=== PATIENT | female | born 1945 | race Caucasian/White ===

== ENCOUNTER 2021-12-21 01:32 | Outpatient (CLI) | payer MEDICARE, SELFPAY ==
[2021-12-21 09:48] LABS: Abs Immature Grans 0.55 10^3/uL (0.0-0.06); Absolute Basophil Count 0.08 10^3/uL (0.0-0.2); HCT 31.5 % (36.0-46.0); HGB 9.9 g/dL (11.2-15.7); MCH 26.6 pg (27.0-33.0); MCHC 31.4 % (32.0-36.0); MCV 84.7 fL (80-95); MPV 8.6 fL (8.0-11.0); Nucleated RBC 0 %; Platelet Count 337 10^3/uL (130-400); RBC 3.72 10^6/uL (3.93-5.22); RDW 14.6 % (11.7-14.6); RDW-SD 44.4 fL
[2021-12-21 09:58] LABS: ALT 25 U/L (14-59); AST 22 U/L (15-37); Albumin 3.7 g/dL (3.4-5.0); Alkaline Phosphatase 84 U/L (46-116); Anion Gap 6.2 mmol/L (3-11); BUN 13 mg/dL (7-18); Bilirubin, Total 0.2 mg/dL (0.2-1.0); CO2 28.8 mmol/L (21.0-32.0); CREATININE 0.7 mg/dL (0.55-1.02); Chloride 95 mmol/L (98-107); Glucose 119 mg/dL (74-106); Magnesium 1.8 mg/dL (1.8-2.4); Potassium 3.4 mmol/L (3.5-5.1); Sodium 130 mmol/L (136-145); Total Protein 7.9 g/dL (6.4-8.2)
[2021-12-21 10:11] LABS: Absolute Eosinophil Count 0.08 10^3/uL (0.0-0.7); Absolute Lymphocyte Count 1.36 10^3/uL (1.2-3.4); Absolute Monocyte Count 1.12 10^3/uL (0.1-0.8); Absolute Neutrophil Count 5.28 10^3/uL (1.2-6.7); Bands % 2
[2021-12-21 10:12] LABS: Diff Comment Manual Differential; Metamyelocytes % 1; Polychromasia Present
== END 2021-12-21 01:33 | disposition home or self-care (01) ==
LOC: LBO 01:32
PROVIDERS: PCP Physician Assistant Medical; Visit Provider Internal Medicine Medical Oncology
DX: C34.31 Malignant neoplasm of lower lobe, right bronchus or lung (principal)
CPT/HCPCS: 36415; 80053; 83735; 85025

== ENCOUNTER 2022-01-08 11:33 | Emergency (ER) | payer MEDICARE, MEDICAID, SELFPAY ==
[2022-01-08] VITALS (125 sets, daily range): BP systolic 146–216; BP diastolic 55–143; PULSE 66–92; RESP 9–24; TEMP 36; O2SAT 92–100
--- NOTE | 2022-01-08 11:45 | RT.EKG_ITS ---
APPROVED REPORT Exam: Resting ECG Reason for Exam: chest pain Patient Location: E HR:82 bpm ECG Measurements Heart Rate 82 AXIS TN 138 P 63 QRSd 89 QRS 40 QT 378 T 41 QTc 442 Conclusion Sinus rhythm...normal P axis, V-rate 60- 99
--- NOTE | 2022-01-08 11:45 | DI.CT_ITS ---
Exam(s) CT CHEST PE ABD PELVIS W EXAM: CT CHEST PE ABD PELVIS W CLINICAL HISTORY: back pain, chest pain. TECHNIQUE: Imaging Protocol: Axial CT angiography was performed with multi-slice acquisition and mu lti-planar and/or 3D reconstructions. CONTRAST MATERIAL: Intravenous: Omnipaque 350 Contrast volume:100 mL COMPARISON: No exams were available for comparison FINDINGS: CHEST: Tracheobronchial tree: Patent where visualized. There is a small right pleural effusion. There is an area of triangular consolidation in the right lower lobe. There is soft tissue extending from the hil um into the right lower lobe which causes obstruction of right lower lobe bronchi leading to the tria ngular consolidation. Within the area of consolidation there is a well-circumscribed round fluid atte nuation lesion measuring 2.9 x 2.3 cm. Pulmonary parenchyma: Please see the above discussion. Centrilobular emphysematous changes are presen t. Pulmonary Arteries: No evidence of filling defect to suggest pulmonary emboli. Mediastinum and Anna: No dominant adenopathy or fluid collection. The esophagus is unremarkable. Visualized thyroid gland: Unremarkable. Pleura: Please see the above discussion. No left pleural effusion or pneumothorax. Heart: The heart is not dilated. No coronary artery calcifications are seen. No pericardial effusion. Aorta: Thoracic aorta non-dilated. No evidence of dissection. Mild atherosclerosis. Bones: Within normal limits for the patient's age. No suspicious lytic or sclerotic lesions are prese nt. Soft tissues: Unremarkable. ABDOMEN: Liver: Normal density. No measurable mass. Portal, Superior Mesenteric, and Splenic Veins: Unremarkable. Gallbladder and Biliary Tract: No radiodense calculus or dilation. Pancreas: Normal density, no abnormal calcifications or inflammatory process. Spleen: Normal. Adrenals: No masses seen. Kidneys: Normal size, contour and axis. No radiodense stones or obstructive uropathy. Tiny hypodensit ies are seen in the kidneys bilaterally. They are too small for further characterization but likely r eflect small cysts. Abdominal Aorta: Abdominal portion non-dilated. Atherosclerosis. Bowel: No evidence of obstruction. There is a short spine at segment of rectosigmoid colon which does show mild thickening of the wall (series 14, image [id number]). It measures almost 4 cm in length. There is mild dilatation of the colon just proximally. No evidence of appendicitis. Diverticulosis in the col on but no evidence of acute diverticulitis. Peritoneal Cavity: No ascites, collection or mesenteric inflammatory response. No free air. Lymph Nodes: Within normal limits. Bones: Within normal limits for the patient's age. There are 2 round small sclerotic foci in the L1 vertebral body. There is a small sclerotic focus in the L5 vertebral body. Follow-up as clinically in dicated. Soft Tissues: Unremarkable. PELVIS: Bladder: Symmetric distention, no gross wall thickening. Reproductive Organs: Status post hysterectomy. Lymph Nodes: Within normal limits. Bones: Within normal limits. IMPRESSION: 1. No evidence pulmonary embolism, thoracic aortic dissection or aneurysm. 2. Triangular area of consolidation in the right lower lobe with what appears to be obstruction of th e of right lower lobe bronchus. An obstructing mass should be considered with postobstructive atelect asis or pneumonia and small pleural effusion. 3. A question of thickening of the wall of the rectosigmoid colon with mild dilatation of the proxima l colon. An obstructing lesion is suspected. Further evaluation with barium enema and/or colonoscopy is recommended. 4. No acute abdominal or pelvic process. 5. Results of this exam have been verbally communicated with provider. RADIATION DOSE DELIVERED: 1,114.39mGy.cm Total DLP DATA REPOSITORY: All CT scans at this facility are submitted to the National Radiology Data Registry (NRDR) Dose Index Registry (DIR) with the [employer] (ACR). RADIATION OPTIMIZATION: All CT scans at this facility use at least one of these dose optimization te chniques: automated exposure control; mA and/or kV adjustment per patient size (includes targeted exa ms where dose is matched to clinical indication); or iterative reconstruction.
[2022-01-08 12:18] LABS: Abs Immature Grans 0.09 10^3/uL (0.0-0.06); Absolute Basophil Count 0.05 10^3/uL (0.0-0.2); Absolute Eosinophil Count 0.01 10^3/uL (0.0-0.7); Absolute Lymphocyte Count 0.76 10^3/uL (1.2-3.4); Absolute Neutrophil Count 1.76 10^3/uL (1.2-6.7); Basophils % 1.4; Eosinophils % 0.3; HCT 28.6 % (36.0-46.0); HGB 9.2 g/dL (11.2-15.7); Immature Grans % 2.6; Lymphocytes % 21.9; MCH 27.3 pg (27.0-33.0); MCHC 32.2 % (32.0-36.0); MCV 84.9 fL (80-95); MPV 8.7 fL (8.0-11.0); Monocytes % 23.1; Neutrophils % 50.7; Nucleated RBC 0 %; Platelet Count 221 10^3/uL (130-400); RBC 3.37 10^6/uL (3.93-5.22); RDW 15.9 % (11.7-14.6); RDW-SD 48.7 fL; WBC 3.47 10^3/uL (4.4-10.8)
--- NOTE | 2022-01-08 12:29 | ED.GENADUL_ITS ---
Discharge Plan Disposition Patient Disposition: HOME Condition: Stable Discharge Details Clinical Impression: Back pain, Elevated troponin, Lung cancer Primary Care Provider: Pura Villanueva ED Provider: Chucky Currie Home Meds and New Rx's Prescriptions: New oxycodone-acetaminophen [Percocet] 5-325 mg tablet 1 tab PO TID PRNQty: 7 0RF Continued prednisone 20 mg Tablet 40 mg PO DAILY 0RF sertraline 100 mg Tablet 100 mg PO DAILY 0RF atenolol 25 mg Tablet 12.5 mg PO DAILY 0RF amlodipine 5 mg Tablet 5 mg PO DAILY 0RF aspirin 81 mg Tablet,Delayed Release (Dr/Ec) 81 mg PO DAILY 0RF tramadol 50 mg Tablet 50 mg PO TID PRN0RF lorazepam 0.5 mg Tablet 0.5 mg PO BID PRN0RF benzonatate 100 mg Capsule 100 mg PO TID PRN0RF hydrochlorothiazide 25 mg Tablet 25 mg PO DAILY 0RF fluticasone propion-salmeterol [Advair Diskus] 100-50 mcg/dose Blister With Device 1 inh inhalation DAILY 0RF polyethylene glycol 3350 [Miralax] 17 gram/dose Powder 17 g PO DAILY 0RF irbesartan [Avapro] 300 mg Tablet 300 mg PO DAILY 0RF cyclobenzaprine 5 mg Tablet 5 mg PO TID PRN0RF melatonin 1 mg Tablet 1 mg PO QHS PRN0RF Spiriva with HandiHaler 18 mcg Capsule, W/Inhalation Device 1 cap INHALATION DAILY 0RF acetaminophen 325 mg Capsule 650 mg PO TID PRN0RF albuterol sulfate 90 mcg/actuation Aerosol Powdr Breath Activated 2 inh INHALATION Q4H PRN0RF yehxosyzwhf-vcgqkugpr-rbsjeoaj 200-62.5-25 mcg Blister With Device 1 inh INHALATION DAILY 0RF Discharge Instructions Instructions: Back Pain (ED) Additional Instructions: Please follow-up with your primary care physician, you will likely need an outpatient stress test Please return earlier should you have new or worsening complaints Should you have fever, chills, shortness of breath, you must return to the emergency room for reassessment follow-up your oncologist regarding your pain follow-up regarding your ct findings with possible lesion in your colon Referrals: Pura Villanueva [Primary Care Provider] - 1 day Discharge Data Discharge Date/Time-TO BE ENTERED AT DEPARTURE: 01/08/22 18:28 Medical Decision Making <XAVIER Peralta - Last Filed: 01/12/22 08:21> Patient appears well, she is pain-free Her EKG does not show acute abnormality Her initial troponin was elevated at 72 CT results show right lower lobe lesion, I suspect her suspicion for cancer is is where she tells me she was diagnosed There is no clinical evidence of pneumonia, no leukocytosis, no persistent tachycardia, and her hemoglobin hematocrit are stable per patient My suspicion is low that this is cardiac related and elevation Her repeat EKG and troponin do not show acute abnormality, troponin 69, decreased from [address] Dan regarding admission of this patient for trending troponins and stress test, however they declined admission at this time To err on the side of caution I will order repeat troponin at 5:00 in the evening and repeat EKG at this time An echocardiogram I have also been ordered to evaluate for wall motion abnormalities Should patient have elevation in her troponin, or an abnormal EKG/echocardiogram, she will need to be admitted at that time Patient is calm and pleasant, she is pain-free She was given 4 baby aspirin care will be transferred to Chucky Currie PA-C pending repeat troponin at 5:00, repeat troponin, and evaluation of patient's echocardiogram for wall motion abnormality If these are normal I think she stable for discharge home We will write for pain medication should she need Medical Records Medical records reviewed: Yes I reviewed the patient's medical records. <XAVIER Martinez - Last Filed: 01/08/22 18:14> Patient appears well, she is pain-free Her EKG does not show acute abnormality Her initial troponin was elevated at 72 CT results show right lower lobe lesion, I suspect her suspicion for cancer is is where she tells me she was diagnosed There is no clinical evidence of pneumonia, no leukocytosis, no persistent tachycardia, and her hemoglobin hematocrit are stable per patient My suspicion is low that this is cardiac related and elevation Her repeat EKG and troponin do not show acute abnormality, troponin 69, decreased from [address] Dan regarding admission of this patient for trending troponins and stress test, however they declined admission at this time To err on the side of caution I will order repeat troponin at 5:00 in the evening and repeat EKG at this time An echocardiogram I have also been ordered to evaluate for wall motion abnormalities Should patient have elevation in her troponin, or an abnormal EKG/echocardiogram, she will need to be admitted at that time Patient is calm and pleasant, she is pain-free She was given 4 baby aspirin care will be transferred to Chucky Currie PA-C pending repeat troponin at 5:00, repeat troponin, and evaluation of patient's echocardiogram for wall motion abnormality If these are normal I think she stable for discharge home We will write for pain medication should she need CJB 1530 I personally reevaluate the patient, she is resting comfortably asking for a drink. She denies any chest pain or shortness of breath whatsoever. Please see initial HPI and examination by my colleague XAVIER Villela. At time of signout pending a delta troponin and EKG at 1700 and awaiting echocardiogram. If there are no dynamic changes and patient remains hemodynamically stable, plan is to discharge home. Patient able to tolerate p.o. intake without difficulty. Echocardiogram read by radiology, no emergent process identified that would change disposition EKG performed at 1702, please see read by Dr. Moon. Sinus rhythm, ventri cular of 71, no STEMI. Repeat troponin is 70, does not appear to be increasing. She denies any chest pain or shortness of breath. Patient is requesting to be discharged home. Her blood pressure has trended downward nicely since her initial presentation. Strict discharge and return precautions were provided. Otherwise she will contact her provider first thing Tuesday morning to discuss her ER visit, symptoms, need for outpatient reevaluation. This documentation was generated using [employer] dictation system, please disregard any oddities of phrase or misspellings. Imaging Data Radiologic Study: Attestation: I personally reviewed and interpreted this imaging study as follows: Imaging: Ultrasound Radiologist's impression: EXAM: Comprehensive 2D, Doppler, and color-flow Echocardiogram Patient Location: ER Room/Bed:? 7 Entertainment Reporter: Madiha Downing RDCS (AE) Indications: Back pain Other Information Study Quality: Adequate. Technically limited study due to body habitus, inability to position patient exam done supine bedside er. Conclusion Normal left ventricular wall thickness and chamber size.? Estimated ejection fraction is 60 to 65%.? Wall motion is normal Normal right ventricular size and systolic function Both atria are normal in size Sclerotic trileaflet aortic valve with trace regurgitation Mild mitral annular calcification.? Mild mitral regurgitation Normal tricuspid valve with trace regurgitation.? Estimated right ventricular systolic pressure is 35 mmHg Aortic root and ascending aorta are normal Wall motion Left Ventricle The left ventricle is normal size. The left ventricular systolic function is normal. The left ventricular ejection fraction is within the normal range. There is normal left ventricular wall thickness. There is normal LV segmental wall motion. There is no ventricular septal defect visualized. LVEF is 62%. Right Ventricle The right ventricle is normal size. The right ventricular systolic function is normal. The RVSP is 35.4 mmHg. Atria The left atrium size is normal. The right atrium size is normal. The interatrial septum is intact with no evidence for an atrial septal defect. Aortic Valve The Aortic valve is sclerotic. Aortic valve is trileaflet. There is no aortic valvular stenosis. Trace aortic regurgitation. Mitral Valve Mild mitral annular calcification. No evidence of mitral valve stenosis. Mild mitral regurgitation. Tricuspid Valve The tricuspid valve is normal in structure. There is no tricuspid valve stenosis. Trace tricuspid regurgitation. Pulmonic Valve Pulmonic valve is not well visualized. There is no pulmonic valvular stenosis. There is no pulmonic valvular regurgitation. Great Vessels The aortic root is normal in size. The ascending aorta is normal in size. Aortic arch is not well visualized. The IVC is plethoric. Pericardium There is no pericardial effusion. HPI <XAVIER Peralta - Last Filed: 01/12/22 08:21> General Date/Time Provider Initiated Documentation: 01/08/22 11:37 . HPI Narrative: This 76-year-old female with back pain from her catheter for extended her lumbar region for the past 6 days. She states that the pain is predominantly at night and keeps her up from sleeping. She denies any anterior chest pain or shortness of breath. She denies any blood in her stool. She denies any nausea or vomiting. She states that she has had 3 doses of chemotherapy and this is her first round of intervention. Past chemotherapy was this week. She denies prior history of similar symptoms in the past. She states she just had a PET scan recently at [facility]. She also states she had a head CT that did not show acute abnormality. She denies any history of coagulopathy. She denies any calf pain or swelling. She denies any known exacerbating or alleviating factors. Related Data Home Medications Medication Instructions Recorded Confirmed acetaminophen 325 mg capsule 650 mg PO TID PRN 01/08/22 01/08/22 albuterol sulfate 90 mcg/actuation 2 inh INHALATION Q4H PRN 01/08/22 01/08/22 breath activated powder inhaler amlodipine 5 mg tablet 5 mg PO DAILY 01/08/22 01/08/22 aspirin 81 mg tablet,delayed 81 mg PO DAILY 01/08/22 01/08/22 release atenolol 25 mg tablet 12.5 mg PO DAILY 01/08/22 01/08/22 benzonatate 100 mg capsule 100 mg PO TID PRN 01/08/22 01/08/22 cyclobenzaprine 5 mg tablet 5 mg PO TID PRN 01/08/22 01/08/22 fluticasone 100 mcg-salmeterol 50 1 inh INHALATION DAILY 01/08/22 01/08/22 mcg/dose blistr powdr for inhalation (Advair Diskus) fluticasone fur. 200 mcg-umeclid 1 inh INHALATION DAILY 01/08/22 01/08/22 62.5 mcg-vilant 25 mcg inhalat.powder hydrochlorothiazide 25 mg tablet 25 mg PO DAILY 01/08/22 01/08/22 irbesartan 300 mg tablet (Avapro) 300 mg PO DAILY 01/08/22 01/08/22 lorazepam 0.5 mg tablet 0.5 mg PO BID PRN 01/08/22 01/08/22 melatonin 1 mg tablet 1 mg PO QHS PRN 01/08/22 01/08/22 oxycodone-acetaminophen 5 mg-325 1 tab PO TID PRN #7 tab 01/08/22 mg tablet (Percocet) polyethylene glycol 3350 17 17 g PO DAILY 01/08/22 01/08/22 gram/dose oral powder (Miralax) prednisone 20 mg tablet 40 mg PO DAILY 01/08/22 01/08/22 sertraline 100 mg tablet 100 mg PO DAILY 01/08/22 01/08/22 tiotropium bromide 18 mcg capsule 1 cap INHALATION DAILY 01/08/22 01/08/22 with inhalation device (Spiriva with HandiHaler) tramadol 50 mg tablet 50 mg PO TID PRN 01/08/22 01/08/22 Previous Rx's Medication Instructions Recorded oxycodone-acetaminophen 5 mg-325 1 tab PO TID PRN #7 tab 01/08/22 mg tablet (Percocet) Allergies Allergy/AdvReac Type Severity Reaction Status Date / Time rosuvastatin [From Crestor] Allergy unknown Unverified 01/08/22 12:04 General Stated Complaint: GenMedical TAMMI: 3 Review of Systems <XAVIER Peralta - Last Filed: 01/12/22 08:21> All systems reviewed & are unremarkable except as noted in HPI and below PFSH <XAVIER Peralta - Last Filed: 01/12/22 08:21> All Active Problems (Updated 01/08/22 @ 15:57 by XAVIER Peralta) Back pain (Acute) Elevated troponin (Acute) Lung cancer (Chronic) Social History Smoking/Tobacco Use Status: Current, status unknown Smoking risk assessment performed?: Yes Alcohol Intake: never Do you feel safe at home: Yes Do you feel safe in your relationship?: Yes Exam <XAVIER Peralta - Last Filed: 01/12/22 08:21> Const General: cooperative, comfortable and no acute distress HENMT Mouth: oral mucosae normal Eyes Pupils: PERRL Neck Other: No midline or paraspinal tenderness Chest Other: No crepitus or anterior chest wall tenderness Resp Effort & Inspection: normal respiratory effort Other: Scant wheezing No respiratory distress Cardio Rate: regular rate Rhythm: regular rhythm Other: Distal pulses intact GI Other: No Cesar Bowser's sign, no CVA tenderness, no abdominal tenderness, no abdominal bruits or pulsatile mass Back/Spine/Pelvis Back: no CVA tenderness Other: Mild diffuse tenderness, no crepitus, no rashes or lesions Skin General skin exam: no rashes or lesions noted Neuro General: patient alert and patient oriented x3 Cranial Nerves: CN's II-XI intact bilaterally Other: DTRs intact to bilateral upper and lower extremities, strength and sensation intact distally, neurovascularly intact No reproducible tenderness Extrem Other: No calf swelling or tenderness, distal pulses intact Course <XAVIER Peralta - Last Filed: 01/12/22 08:21> Vital Signs Vital signs: Vital Signs Temperature 36 C L 01/08/22 11:41 Pulse 92 H 01/08/22 11:41 Respiratory Rate 18 03/04/22 11:41 Blood Pressure 216/70 H 01/08/22 11:41 Pulse Oximetry 98 01/08/22 11:41 Temperature 36 C L 01/08/22 11:41 Temperature Source Temporal Artery Scan 01/08/22 11:41 Pulse 92 H 01/08/22 11:41 Respiratory Rate 24 01/08/22 11:47 Respiratory Effort 01/08/22 11:47 Respiratory Depth Shallow 01/08/22 11:47 Respiratory Pattern Normal 01/08/22 11:47 Blood Pressure 216/70 H 01/08/22 11:41 Blood Pressure Position Sitting 01/08/22 11:41 Pulse Oximetry 98 01/08/22 11:41 Oxygen Delivery Method Nasal Cannula 01/08/22 11:41 Oxygen Flow Rate 3 01/08/22 11:41 Lab/Test Results Lab/Test Results: Laboratory Tests Range/Units 01/08/22 12:06 WBC (4.4-10.8) 10^3/uL 3.47 L RBC (3.93-5.22) 10^6/uL 3.37 L Hgb (11.2-15.7) g/dL 9.2 L Hct (36.0-46.0) % 28.6 L MCV (80-95) fL 84.9 MCH (27.0-33.0) pg 27.3 MCHC (32.0-36.0) % 32.2 RDW (11.7-14.6) % 15.9 H Plt Count (130-400) 10^3/uL 221 D MPV (8.0-11.0) fL 8.7 Immature Gran % 2.6 Neutrophils % 50.7 Lymphocytes % 21.9 Monocytes % 23.1 Eosinophils % 0.3 Basophils % 1.4 Nucleated RBC % % 0 Absolute Neutrophils (1.2-6.7) 10^3/uL 1.76 Absolute Lymphocytes (1.2-3.4) 10^3/uL 0.76 L Absolute Monocytes (0.1-0.8) 10^3/uL 0.80 Absolute Eosinophils (0.0-0.7) 10^3/uL 0.01 Absolute Basophils (0.0-0.2) 10^3/uL 0.05 Sign Out <XAVIER Peralta - Last Filed: 01/12/22 08:21> Sign Out Data: Sign Out Comment: pending repeat trop and ekg at 1700, pending echo interpretation wtg without acute change in above Last updated by Ciera Villela PA at 01/08/22 16:07
[2022-01-08 12:35] LABS: ALT 42 U/L (14-59); AST 23 U/L (15-37); Alkaline Phosphatase 91 U/L (46-116); Anion Gap 7.3 mmol/L (3-11); BUN 15 mg/dL (7-18); Bilirubin, Total 0.4 mg/dL (0.2-1.0); CO2 30.7 mmol/L (21.0-32.0); CREATININE 0.8 mg/dL (0.55-1.02); Calcium 9.7 mg/dL (8.5-10.1); Chloride 94 mmol/L (98-107); Creatine Kinase 46 U/L (26-192); Glucose 147 mg/dL (74-106); Lipase 57 U/L (73-393); Potassium 3.6 mmol/L (3.5-5.1); Sodium 132 mmol/L (136-145)
[2022-01-08 12:36] LABS: Troponin I 72 ng/L (<or=60)
[2022-01-08] MEDS: Omnipaque 350 MG/ML 100 ML BTL IJ (12:58)
[2022-01-08 13:10] LABS: NT-proBNP 394 pg/mL (<300)
[2022-01-08 13:16] LABS: Bilirubin Negative (Negative); Blood Negative (Negative); Clarity Clear (Clear); Glucose Negative (Negative); Ketones Negative (Negative); Leukocyte Esterase Negative (Negative); Nitrite Negative (Negative); Urobilinogen 0.2 EU/dL (Up TO 0.2)
--- NOTE | 2022-01-08 13:45 | RT.EKG_ITS ---
APPROVED REPORT Exam: Resting ECG Reason for Exam: chest pain Patient Location: E HR:72 bpm ECG Measurements Heart Rate 72 AXIS MN 139 P 63 QRSd 91 QRS 39 QT 385 T 37 QTc 422 Conclusion Sinus rhythm...normal P axis, V-rate 60- 99
[2022-01-08] MEDS: Aspirin 81 MG CHEW 243 MG CH (14:18)
[2022-01-08 14:30] LABS: Troponin I 69 ng/L (<or=60)
--- NOTE | 2022-01-08 15:07 | DI.US_ITS ---
APPROVED REPORT EXAM: Comprehensive 2D, Doppler, and color-flow Echocardiogram Patient Location: ER Room/Bed: 7 Licensing Coordinator: Madiha Downing RDCS (AE) Indications: Back pain Other Information Study Quality: Adequate. Technically limited study due to body habitus, inability to position patient exam done supine bedside er. Conclusion Normal left ventricular wall thickness and chamber size. Estimated ejection fraction is 60 to 65%. Wall motion is normal Normal right ventricular size and systolic function Both atria are normal in size Sclerotic trileaflet aortic valve with trace regurgitation Mild mitral annular calcification. Mild mitral regurgitation Normal tricuspid valve with trace regurgitation. Estimated right ventricular systolic pressure is 35 mmHg Aortic root and ascending aorta are normal Wall motion Left Ventricle The left ventricle is normal size. The left ventricular systolic function is normal. The left ventric ular ejection fraction is within the normal range. There is normal left ventricular wall thickness. T here is normal LV segmental wall motion. There is no ventricular septal defect visualized. LVEF is 62 %. Right Ventricle The right ventricle is normal size. The right ventricular systolic function is normal. The RVSP is 35 .4 mmHg. Atria The left atrium size is normal. The right atrium size is normal. The interatrial septum is intact wit h no evidence for an atrial septal defect. Aortic Valve The Aortic valve is sclerotic. Aortic valve is trileaflet. There is no aortic valvular stenosis. Trac e aortic regurgitation. Mitral Valve Mild mitral annular calcification. No evidence of mitral valve stenosis. Mild mitral regurgitation. Tricuspid Valve The tricuspid valve is normal in structure. There is no tricuspid valve stenosis. Trace tricuspid reg urgitation. Pulmonic Valve Pulmonic valve is not well visualized. There is no pulmonic valvular stenosis. There is no pulmonic v alvular regurgitation. Great Vessels The aortic root is normal in size. The ascending aorta is normal in size. Aortic arch is not well vis ualized. The IVC is plethoric. Pericardium There is no pericardial effusion. 2D Dimensions IVSD d PLAX 1.01 cm F: 0.6-1.0 LV Vol A2C d MOD 84.5 mL LVPW d PLAX 1.01 cm F: 0.6 - 1.0 LV Vol A4C d MOD 99.2 mL LVID d PLAX 4.56 cm F: 3.8 - 5.2 LA vol/ BSA A2C s A-L 32.1 mL/m2 LVDs 2.95 cm F: 2.2 - 3.5 LA vol/ BSA A4C s A-L 29.6 mL/m2 Ao Root d 2.64 cm F: 2.7 - 3.3 LA Vol/ BSA Biplane s A-L 31.4 mL/m2 RA Area A4C 16.33 cm2 LA Area A4C s MOD 18.87 cm2 RA Vol/ BSA A4C s A-L 23.3 mL/m2 LA Area A2C s MOD 19.27 cm2 Ao Asc Diam d 3.08 cm F: 2.3 - 3.1 LV EF A4C MOD 62.7 % LV EF Teichholz 63.4 % LV EF A2C MOD 63.5 % LVEF (Diaz's) 62.88 % F: 54 - 74 LV EF Biplane MOD 62.9 % LV Volume 73.27 mL F: 46 - 106 SV 58.04 mL LV Volume Index 43.10 mL/m2 F: 29 - 61 SV Index 34.12 mL/m2 LV Vol Biplane MOD 92.3 mL FS 34.25 % M-Mode TAPSE 2.41 cm (M/F) >1.7 LV Diastology MV E' medial 0.071 (>0.07 m/s) E/A Ratio 0.8 LV E/e MED 11.55 (<14) MV E Vmax 0.82 (0.4-1.3 m/s) MV E' lateral 0.103 (>0.1 m/s) MV A Vmax 1.05 (0.4-1.3 m/s) LV E/e LAT 7.95 (<14) MV E/A Ratio 0.76 MV E/E' medial 11.56 MV E/E' lateral 7.98 Aortic Valve LVOT Area 2.96 cm2 AoV Area Vmax 1.98 cm2 LVOT Vmax 1.26 m/s AoV Area/ BSA (Vmax) 1.17 cm2/m2 LVOT Mean Yomi. 0.79 m/s SHELLIE Mean Yomi. 1.88 cm2 LVOT Peak Grad 6.4 mmHg SHELLIE Mean Yomi. Index 1.10 cm2/m2 LVOT Mean Grad 3.0 mmHg AR DT 1858 msec LVOT VTI 0.286 m AR PHT 539 msec LVOT Diam s 1.90 cm AoV Vmax 1.88 m/s Velocity Ratio 0.67 AoV Mean Yomi. 1.25 m/s AoV Peak Grad 14.2 mmHg LVOT SV 84.57 mL AoV Mean Grad 7.0 mmHg AoV VTI 0.372 m AoV Area VTI 2.28 cm2 AoV Area/ BSA (VTI) 1.34 cm/m2 Mitral Valve MV DT 307 (160-240 msec) MR Vmax 5.77 m/s MV PHT 89 msec MR VTI 2.062 m MV Area PHT 2.47 cm2 MR Peak Grad 133.1 mmHg MV VTI 0.416 m MR Mean Grad 99.6 mmHg MV VTI Annulus 0.442 m MR PISA Radius 0.40 cm MV Area VTI 2.17 (4.0-6.0 cm2) MR EROA 0.06 cm2 MR Aliasing Velocity 0.35 m/s MR PISA 1.01 cm2 Pulmonary Valve PV Vmax 1.15 (0.5-1.5 m/s) RVOT Peak Gr. 3.12 mmHg PV Peak Grad 5.3 mmHg RVOT Mean Gr. 1.90 mmHg PV Mean Grad 2.5 mmHg RVOT VTI 0.213 m PV VTI 0.250 m RVOT Vmax 0.88 m/s Tricuspid Valve TR Peak Grad 27.3 mmHg TR Vmax 2.62 m/s RA Pressure 8.00 mmHg RVSP (TR) 35.4 mmHg
--- NOTE | 2022-01-08 16:00 | RT.EKG_ITS ---
APPROVED REPORT Exam: Resting ECG Reason for Exam: chest pain Patient Location: E HR:71 bpm ECG Measurements Heart Rate 71 AXIS NJ 140 P 58 QRSd 100 QRS 30 QT 401 T 25 QTc 433 Conclusion Sinus rhythm...normal P axis, V-rate 60- 99 Atrial premature complex...SV complex w/ short R-R interval sinus rhythm, normal axis, nonischemic
[2022-01-08 17:53] LABS: Troponin I 70 ng/L (<or=60)
--- NOTE | 2022-01-09 11:20 | NUR.NOTE ---
Nursing Note: With Lexy Costa, nursing medical supervisor I printed the 01/08/22 visit information for her to fax to a clinic. Melinda Martinez
== END 2022-01-08 18:28 | disposition home or self-care (01) ==
PROVIDERS: Physician Assistant; Emergency Provider Physician Assistant; PCP Physician Assistant Medical
DX: M54.59 Other low back pain (principal); R79.89 Other specified abnormal findings of blood chemistry; C34.90 Malignant neoplasm of unspecified part of unspecified bronchus or lung; R07.9 Chest pain, unspecified; R06.02 Shortness of breath
CPT/HCPCS: 36415; 71275; 74177; 80053; 82550; 83690; 86850; 86900; 86901; 93005; 99285; 81003; 83880; 84484; 85025; 93010; 93306; 99284; J3490